=== PATIENT | female | born 1980 | race Caucasian/White ===

== ENCOUNTER 2016-12-17 09:10 | Inpatient (IN) | payer BC, OTHER ==
[~2016-12-17] VITALS: Ht 167.6 cm; Wt 148.7 kg
[~2016-12-17 09:10] MED LIST: ALPRAZOLAM0.5 MG PO; BENADRYL50 MG PO; BIRTH CONTROL; DELTASONE20 M1 PO; DIFLUCAN150 MG PO; EPIPEN ADU0.3 MG/0.3 IM; ISONIAZID,INH300 MG PO; JUNEL FE 1/21 TABLET PO; KEFLEX500 MG PO; MACROBID100 MG PO; PREDNISONE20 MG PO; SYNTHROID300 MCG PO; VALTREX1000 MG PO; VENTOLIN HFA18 GM IH; VITAMIN D; ZOFRAN ODT4 MG PO; ZOLOFT25 MG PO
[2016-12-17 12:01] VITALS: BP 136/82
[2016-12-17 12:06] VITALS: BP 136/82
[2016-12-17 13:19] LABS: POINT-OF-CARE METER ID UU14174212
[2016-12-17 16:45] VITALS: BP 122/58
[2016-12-17 18:31] LABS: POINT-OF-CARE METER ID UU14162508
[2016-12-17 20:19] VITALS: BP 141/76
[2016-12-17 23:40] VITALS: BP 145/72
[2016-12-18 00:25] LABS: POINT-OF-CARE METER ID UU14162508
[2016-12-18 03:56] VITALS: BP 145/79
[2016-12-18 06:20] LABS: POINT-OF-CARE METER ID UU14162508
[2016-12-18 06:56] LABS: HEMATOCRIT 39.6 % (36.0-46.0); MCHC 32.8 G/DL (30.0-36.0); MCV 85.2 FL (83-99); PLATELET COUNT 247 K/uL (156-360); RBC DIS.WIDTH-CV 15.3 % (11.8-14.6); RBC DIS.WIDTH-SD 46.9 % (39-53); RED BLOOD COUNT 4.65 M/uL (3.80-5.20)
[2016-12-18 07:21] LABS: ANION GAP 10 MEQ/L (2-14); CHLORIDE 101 MEQ/L (99-109); GFR ESTIMATE (CALCULATED) > 59 mL/min/; GLUCOSE 120 mg/dL (70-99); POTASSIUM 4.2 MEQ/L (3.7-5.4); SAMPLE HEMOLYSIS CHECK 0; SAMPLE ICTERIC CHECK 0; SAMPLE LIPEMIA CHECK 0; SODIUM 135 MEQ/L (136-147); UREA NITROGEN (BUN) 12 mg/dL (9-23)
[2016-12-18 08:22] VITALS: BP 143/71
[2016-12-18] MEDS ORDERED: PERCOCET 5/31 TABLET PO (08:32)
[2016-12-18] MEDS ORDERED: HYDROCODON-ACE1 EAC7 PO (08:33)
== END 2016-12-18 09:55 | disposition home or self-care (01) | DRG 621 ==
LOC: 2SOUTH 09:10 → 2EAST 11:19 → 2SOUTH 11:19 → 2EAST 16:31
PROVIDERS: Surgery
PROC: 0DB64Z3 Excision of Stomach, Percutaneous Endoscopic Approach, Vertical (ICD-10-PCS; principal; 2016-12-17)
DX: E66.01 Morbid (severe) obesity due to excess calories (principal); Z68.43 Body mass index [BMI] 50.0-59.9, adult; E78.1 Pure hyperglyceridemia; F41.9 Anxiety disorder, unspecified; E89.0 Postprocedural hypothyroidism; D86.2 Sarcoidosis of lung with sarcoidosis of lymph nodes; Z85.850 Personal history of malignant neoplasm of thyroid; Z86.11 Personal history of tuberculosis; Z88.0 Allergy status to penicillin; Z88.1 Allergy status to other antibiotic agents
CPT/HCPCS: 80048; 82948; 83735; 84100; 85027; 99202; C9113; J0330; J1100; J1170; J1580; J1644; J1650; J1815; J2250; J2270; J2405; J2710; J2765; J3010; J3480; J7050; J7120; S0020

== ENCOUNTER 2017-01-07 08:42 | Emergency (ER) | payer BC, OTHER ==
[~2017-01-07] VITALS: Ht 172.7 cm; Wt 138.1 kg
[~2017-01-07 08:42] MED LIST changes: +HYDROCODON-ACE1 EAC7 PO; +PERCOCET 5/31 TABLET PO
[2017-01-07 10:56] LABS: ADD MIUA? YES; BILIRUBIN NEGATIVE; BLOOD MODERATE; COLOR AMBER ((YELLOW)); GLUCOSE (STRIP) NEGATIVE; KETONES 5; LEUKOCYTES SMALL; NITRITE POSITIVE; PROTEIN (STRIP) 30; SPECIFIC GRAVITY 1.011 (1.000-1.030)
[2017-01-07 11:01] LABS: BACTERIA RARE /HPF; EPITHELIAL CELLS 1+ /HPF; HYALINE CASTS 0-5 /LPF; MUCUS 4+ /LPF; UCUL ADDED? NO
[2017-01-07 11:21] LABS: MCH 27.9 PG (29.0-34.0); MCHC 31.8 G/DL (30.0-36.0); MCV 87.6 FL (83-99); MEAN PLAT.VOLUME 10.2 uM^3 (9.5-12.4); PLATELET COUNT 264 K/uL (156-360); RBC DIS.WIDTH-CV 15.9 % (11.8-14.6); RBC DIS.WIDTH-SD 49.5 % (39-53); RED BLOOD COUNT 4.45 M/uL (3.80-5.20)
[2017-01-07 11:27] LABS: WHITE BLOOD COUNT 4.1 K/uL (4.1-10.2)
[2017-01-07 11:32] LABS: CHLORIDE 108 mEq/L (99-109); SODIUM 140 mEq/L (136-147)
[2017-01-07 11:34] LABS: GLUCOSE 96 mg/dL (70-99)
[2017-01-07 11:35] LABS: ANION GAP 10 MEQ/L (2-14)
[2017-01-07 11:37] LABS: ALKALINE PHOSPHATASE 59 IU/L (3-129)
[2017-01-07 11:38] LABS: GFR ESTIMATE (CALCULATED) > 59 mL/min/
[2017-01-07 11:39] LABS: UREA NITROGEN (BUN) 13 mg/dL (9-23)
[2017-01-07 11:46] LABS: QUANTITATIVE HCG < 4.0 MIU/ML
[2017-01-07] MEDS ORDERED: LEVAQUIN500 MG PO (12:10)
[2017-01-07 14:47] VITALS: BP 106/58
== END 2017-01-07 14:48 | disposition home or self-care (01) ==
LOC: EME 08:42
PROVIDERS: Nurse Practitioner Family
DX: N30.00 Acute cystitis without hematuria (principal); N28.89 Other specified disorders of kidney and ureter; R10.31 Right lower quadrant pain; Z87.440 Personal history of urinary (tract) infections; D86.9 Sarcoidosis, unspecified
CPT/HCPCS: 74176; 80053; 81003; 84702; 85027; 87086; 99281; 99285; J1956; J2270; J2405; J7030

== ENCOUNTER 2017-03-16 06:20 | Emergency (ER) | payer BC, OTHER ==
[~2017-03-16] VITALS: Ht 172.7 cm; Wt 121.6 kg
[~2017-03-16 06:20] MED LIST changes: +LEVAQUIN500 MG PO
[2017-03-16 06:57] LABS: ADD MIUA? YES; BILIRUBIN NEGATIVE; BLOOD NEGATIVE; COLOR AMBER ((YELLOW)); GLUCOSE (STRIP) NEGATIVE; KETONES 20; LEUKOCYTES LARGE; NITRITE NEGATIVE; PROTEIN (STRIP) 30; SPECIFIC GRAVITY 1.025 (1.000-1.030)
[2017-03-16 07:31] LABS: HEMATOCRIT 41.3 % (36.0-46.0); MCH 28.5 PG (29.0-34.0); MCHC 33.7 G/DL (30.0-36.0); MCV 84.8 FL (83-99); MEAN PLAT.VOLUME 10.9 uM^3 (9.5-12.4); PLATELET COUNT 203 K/uL (156-360); RBC DIS.WIDTH-CV 14.1 % (11.8-14.6); RBC DIS.WIDTH-SD 43.5 % (39-53); RED BLOOD COUNT 4.87 M/uL (3.80-5.20); WHITE BLOOD COUNT 3.4 K/uL (4.1-10.2)
[2017-03-16 07:32] LABS: BACTERIA 2+ /HPF; CALCIUM OXALATE CRYSTALS RARE /HPF; CASTS PRESENT /LPF; CRYSTALS PRESENT; EPITHELIAL CELLS 2+ /HPF; HYALINE CASTS RARE /LPF; MUCUS RARE /LPF; RED BLOOD CELLS 0-5 /HPF (0-5); UCUL ADDED? YES; WHITE BLOOD CELLS 20-30 /HPF (0-5)
[2017-03-16 08:12] LABS: CHLORIDE 109 mEq/L (99-109); POTASSIUM 4.4 mEq/L (3.7-5.4); SODIUM 142 mEq/L (136-147)
[2017-03-16 08:13] LABS: GLUCOSE 94 mg/dL (70-99)
[2017-03-16 08:15] LABS: ANION GAP 12 MEQ/L (2-14)
[2017-03-16 08:17] LABS: GFR ESTIMATE (CALCULATED) > 59 mL/min/
[2017-03-16 08:18] LABS: UREA NITROGEN (BUN) 12 mg/dL (9-23)
[2017-03-16] MEDS ORDERED: PERCOCET 5/31 TABLET PO (09:29)
[2017-03-16] MEDS ORDERED: LEVAQUIN500 MG PO (09:29)
[2017-03-16] MEDS ORDERED: ZOFRAN ODT4 MG PO (09:52)
[2017-03-16 09:55] VITALS: BP 104/68
== END 2017-03-16 09:58 | disposition home or self-care (01) ==
LOC: EME 06:20
DX: N39.0 Urinary tract infection, site not specified (principal); R10.9 Unspecified abdominal pain; D86.9 Sarcoidosis, unspecified
CPT/HCPCS: 74176; 80048; 81003; 85027; 87086; 99281; 99285; J2270; J2405; J7030

== ENCOUNTER 2017-05-05 05:28 | Day surgery (SDC) | payer BC, OTHER ==
[~2017-05-05] VITALS: Ht 172.7 cm; Wt 112.5 kg
[2017-05-05 06:00] VITALS: BP 109/61
[2017-05-05] MEDS ORDERED: PERCOCET 5/31 TABLET PO (09:10)
[2017-05-05 10:03] VITALS: BP 125/73
[2017-05-05 10:52] VITALS: BP 129/79
== END 2017-05-05 11:10 | disposition home or self-care (01) ==
LOC: SDC 05:28 → 2SOUTH 13:44 → EDSTATUS 13:44 → SDC 13:44
DX: K81.1 Chronic cholecystitis (principal); K55.069 Acute infarction of intestine, part and extent unspecified; Z88.0 Allergy status to penicillin; E66.01 Morbid (severe) obesity due to excess calories; Z68.41 Body mass index [BMI] 40.0-44.9, adult; R11.2 Nausea with vomiting, unspecified; Z98.84 Bariatric surgery status
CPT/HCPCS: 88304; C1769; J0131; J1100; J1170; J1885; J2250; J2405; J2704; J2710; J2765; J3010; Q0175

== ENCOUNTER 2018-05-11 02:33 | Emergency (ER) | payer BC ==
[~2018-05-11] VITALS: Ht 172.7 cm; Wt 108.9 kg
[2018-05-11 02:57] LABS: HEMATOCRIT 39.8 % (36.0-46.0); HEMOGLOBIN 14.2 G/DL (11.9-15.5); MCH 31.8 PG (29.0-34.0); MCHC 35.7 G/DL (30.0-36.0); PLATELET COUNT 180 K/uL (156-360); RBC DIS.WIDTH-CV 12.5 % (11.8-14.6); RBC DIS.WIDTH-SD 40.7 % (39-53); RED BLOOD COUNT 4.47 M/uL (3.80-5.20); WHITE BLOOD COUNT 6.1 K/uL (4.1-10.2)
[2018-05-11 03:07] LABS: APPEARANCE CLEAR ((CLEAR)); BILIRUBIN NEGATIVE; BLOOD NEGATIVE; COLOR YELLOW ((YELLOW)); GLUCOSE (STRIP) NEGATIVE; KETONES NEGATIVE; LEUKOCYTES TRACE; NITRITE NEGATIVE; PROTEIN (STRIP) 30; SPECIFIC GRAVITY 1.033 (1.000-1.030)
[2018-05-11 03:07] LABS: ALBUMIN 4.3 g/dL (3.2-4.8); CHLORIDE 109 mEq/L (99-109); SODIUM 139 mEq/L (136-147)
[2018-05-11 03:10] LABS: BACTERIA NONE SEEN /HPF; EPITHELIAL CELLS RARE /HPF; MUCUS 1+ /LPF; RED BLOOD CELLS 0-5 /HPF (0-5); UCUL ADDED? NO; WHITE BLOOD CELLS 0-5 /HPF (0-5)
[2018-05-11 03:10] LABS: GLUCOSE 142 mg/dL (70-99)
[2018-05-11 03:11] LABS: TOTAL BILIRUBIN 0.7 mg/dL (0.0-1.0)
[2018-05-11 03:13] LABS: ALKALINE PHOSPHATASE 51 IU/L (3-129); CREATININE 0.8 mg/dL (0.6-1.3); GFR ESTIMATE (CALCULATED) > 59 mL/min/
[2018-05-11 03:14] LABS: UREA NITROGEN (BUN) 11 mg/dL (9-23)
[2018-05-11 03:15] LABS: AST (GOT) 12 IU/L (2-34)
[2018-05-11 03:16] LABS: ALT (GPT) 12 IU/L (3-49)
[2018-05-11 03:17] LABS: LIPASE 10 U/L (1.0-51.0)
[2018-05-11 03:18] LABS: QUANTITATIVE HCG < 4.0 MIU/ML
[2018-05-11] MEDS ORDERED: ZANTAC150 MG PO (03:32)
[2018-05-11 03:42] VITALS: BP 132/83
== END 2018-05-11 03:49 | disposition home or self-care (01) ==
LOC: EME 02:33
PROVIDERS: Emergency Medicine
DX: R10.9 Unspecified abdominal pain (principal); K21.9 Gastro-esophageal reflux disease without esophagitis; Z98.84 Bariatric surgery status; Z88.0 Allergy status to penicillin; Z88.8 Allergy status to other drugs, medicaments and biological substances; Z91.040 Latex allergy status
CPT/HCPCS: 80053; 81003; 83690; 84702; 85027; J2270